=== PATIENT | female | born 1945 ===

== ENCOUNTER 2020-11-09 16:58 | Inpatient (IN) | payer MEDICARE ==
[~2020-11-09] VITALS: Ht 160 cm; Wt 115.2 kg
[2020-11-09] MEDS ORDERED: ANTACID SUSP 30 ML UDC (MYLANTA) PO PRN (17:30)
[2020-11-09] MEDS ORDERED: polyethylene glycoL POWDER 17 GM (MIRALAX) PACK PO PRN (17:30)
[2020-11-09] MEDS ORDERED: ONDANSETRON 4 MG/2 ML (SDV) Z0FRAN IV PRN (17:30)
[2020-11-09] MEDS ORDERED: ENOXAPARIN 100 MG/1 ML (LOVENOX) SYR SC SCH (17:30)
[2020-11-09] MEDS ORDERED: MELATONIN 3 MG TABLET PO PRN (17:30)
[2020-11-09] MEDS ORDERED: ACETAMINOPHEN 325 MG TABLET PO PRN (17:30)
[2020-11-09] MEDS: inSUlin ASPART (NovoLOG) 1 UNIT/0.01 ML (CHARGE PER UNIT) SC SCH (20:24)
[2020-11-09] MEDS ORDERED: CATHETER FLUSH 10 ML SYR IV PRN (20:30)
[2020-11-09 20:32] LABS: ABG BASE EXCESS -2.3 MMOL/L (-2.5-2.5); ABG OXYGEN SATURATION 97 % (94-100); ABG PCO2 40 MMHG (35-45); ABG PH 7.36 (7.37-7.43); ABG PO2 102 MMHG (79-93); ABG TCO2 23.6 MMOL/L (21.0-31.0)
[2020-11-09 20:36] LABS: ALLENS TEST YES-POS; INSPIRED O2 40L; PATIENT TEMP 36.9; VENTILATOR NO
[2020-11-09 20:38] VITALS: BP 133/92
[2020-11-09] MEDS: RT-ALBUTEROL INHALER HFA (VENTOLIN HFA) 18 GM IH SCH (21:00)
[2020-11-09] MEDS ORDERED: ENOXAPARIN 300 MG/3 ML (LOVENOX) MULTI-DOSE VIAL SQ NR (21:00)
[2020-11-09 21:04] LABS: CREATININE SERUM 1.07 MG/DL (0.60-1.30); POTASSIUM 5.3 MMOL/L (3.6-5.0)
[2020-11-09] MEDS: CATHETER FLUSH 10 ML SYR IV SCH (21:07)
--- NOTE | 2020-11-09 22:04 | Tele-ICU Consult ---
History of Present Illness History of Present Illness Date Seen by Provider: Nov 09, 2020 Time Seen by Provider: 21:58 Date of Admission 75 yo F transferred from direct admt note from OSH 4d Hx of SOB, , COVID neg, flu neg CXR shows, SpO2 in PCP office, CXR from OSH pending LA 3.5, now down, troponoin neg, not coughing, not working hard to breathe, no hemoptysis, PMH Pulm Emb, HLD, HTN, Started on IV Rocephin Now on hi georgette oxygen 40 lpm/FiO2 80% plan is to monitor RR, work of breathing, continue oxygen, watch for increasing oxygen requirements Allergies and Home Medications Allergies Coded Allergies: No Allergy Information Available (Unverified , 11/09/20) Past Medical/Social/Family Hx Patient Social History Tobacco Use?: No Alcohol Use?: No Pt stated abuse/neglect: No Immunizations Up To Date Influenza Vaccine Up-to-Date: Yes; Up-to-Date First/Initial COVID19 Vaccinat: may 2020 Second COVID19 Vaccination Carlyle: june 2020 Current Status Communicates: Verbally Primary Language: Puerto Rican Preferred Spoken Language: Puerto Rican Review of Systems Constitutional: see HPI Sepsis Event Evaluation Height, Weight, BMI Height: '" Weight: lbs. oz. kg; 45.42 BMI Method: Exam Exam Patient acknowledged, consented, and participated in this virtual visit which was conducted using real time audio/video Vital Signs Date Time Temp Pulse Resp B/P (MAP) Pulse Ox O2 Delivery O2 Flow Rate FiO2 11/09/20 21:05 Vapotherm 40.00 70.00 11/09/20 21:00 99 Vapotherm 40.00 80 11/09/20 20:50 98 Vapotherm 40.00 80 11/09/20 20:38 36.9 91 95 0 11/09/20 20:28 Vapotherm 40.00 80.00 11/09/20 20:17 96 Vapotherm 40.00 100 11/09/20 20:00 Vapotherm 40.00 80 11/09/20 19:56 36.9 92 24 165/96 (119) 100 Vapotherm 40.00 100.00 11/09/20 19:55 90 Height & Weight Height: '" Weight: lbs. oz. kg; 45.42 BMI Method: General Appearance: Mild Distress Respiratory: Decreased Breath Sounds Cardiovascular: Regular Rate, Rhythm Gastrointestinal: normal bowel sounds Results Lab Laboratory Tests 11/09/20 20:25 Assessment/Plan Assessment/Plan continue abx, monitor WOB, SpO2 Time spent with patient (mins): 15 MITRA AGUILAR MD Nov 09, 2020 22:04
[2020-11-10 04:15] LABS: HEMATOCRIT 39 % (35-52); HEMOGLOBIN 11.9 g/dL (11.5-16.0); MEAN CORPUSCULAR HEMOGLOBIN 28 pg (25-34); MEAN CORPUSCULAR HGB CONC 30 g/dL (32-36); MEAN CORPUSCULAR VOLUME 93 fL (80-99); MEAN PLATELET VOLUME 9.3 fL (9.0-12.2); PLATELET COUNT 351 10^3/uL (130-400); WHITE BLOOD COUNT 13.3 10^3/uL (4.3-11.0)
[2020-11-10 04:37] LABS: CHLORIDE 103 MMOL/L (98-107); POTASSIUM 4.2 MMOL/L (3.6-5.0); SODIUM 140 MMOL/L (135-145)
[2020-11-10 04:39] LABS: CALCIUM 9.2 MG/DL (8.5-10.1); GLUCOSE 196 MG/DL (70-105)
[2020-11-10 04:41] LABS: CARBON DIOXIDE 22 MMOL/L (21-32)
[2020-11-10 04:43] LABS: CREATININE SERUM 0.89 MG/DL (0.60-1.30); GFR ESTIMATED > 60; PHOSPHORUS 3.5 MG/DL (2.3-4.7)
[2020-11-10 04:44] LABS: BUN/CREATININE RATIO 20
[2020-11-10 04:45] LABS: MAGNESIUM 1.6 MG/DL (1.6-2.4)
[2020-11-10] MEDS: inSUlin ASPART (NovoLOG) 1 UNIT/0.01 ML (CHARGE PER UNIT) SC SCH ×4 (05:14→20:08)
[2020-11-10] MEDS: MAGNESIUM 1 GM/100 ML IVPB 100 ML IV SCH (05:22)
[2020-11-10] MEDS: KCL 20 MEQ TAB (K-DUR) PO SCH (05:22)
[2020-11-10] MEDS: POTASSIUM CL 10MEQ/50ML IVPB 50 ML IV SCH (05:22)
[2020-11-10] MEDS: CATHETER FLUSH 10 ML SYR IV SCH ×3 (05:22→20:30)
[2020-11-10] MEDS: RT-ALBUTEROL INHALER HFA (VENTOLIN HFA) 18 GM IH SCH ×2 (08:04→21:22)
--- NOTE | 2020-11-10 08:53 | Diagnostic Imaging Report ---
Indication: Hypoxemia Portable chest 8:42 AM Heart size and pulmonary vascularity are normal. Lungs are clear. There are no effusions or pneumothoraces. IMPRESSION: Negative chest Dictated by: Dictated on workstation # [id number]
[2020-11-10] MEDS ORDERED: ENOXAPARIN 60 MG/0.6 ML (LOVENOX) SYR SC SCH (09:00)
[2020-11-10] MEDS ORDERED: MULT-593 PO (10:58)
[2020-11-10] MEDS ORDERED: OLAN2.5T27 PO (10:58)
[2020-11-10] MEDS ORDERED: VENL150C98 PO (10:58)
[2020-11-10] MEDS ORDERED: AMLO-250 PO (10:58)
[2020-11-10] MEDS ORDERED: INSU100I53 SQ ×2 (10:58)
[2020-11-10] MEDS ORDERED: CALC-823 PO (10:58)
[2020-11-10] MEDS ORDERED: ACET-2267 PO (10:58)
[2020-11-10] MEDS ORDERED: LOVA20TA2 PO (10:58)
[2020-11-10] MEDS ORDERED: ACET325T38 PO (10:58)
[2020-11-10] MEDS ORDERED: LISI20TA26 PO (10:58)
[2020-11-10] MEDS ORDERED: ASPI-1238 PO (10:58)
[2020-11-10] MEDS ORDERED: CHOL-34 PO (10:58)
[2020-11-10] MEDS ORDERED: LORA10TA7 PO (10:58)
[2020-11-10] MEDS ORDERED: GLIM4TAB5 PO (10:58)
[2020-11-10] MEDS ORDERED: METF-399 PO (10:58)
[2020-11-10] MEDS ORDERED: ERGO2000 PO (11:03)
--- NOTE | 2020-11-10 11:29 | History & Physical-Hospitalist ---
History of Present Illness HPI/Chief Complaint Ashanti Powell is a 75-year-old female with past medical history of hypertension, hyperlipidemia, history of DVT/PE, who presented with shortness of breath. She states that she has been very short of breath with exertion recently. She went to her doctor's office and was hypoxic. She had to have an ambulance pick her u p in the parking lot and take her to the emergency room. She denies any chest pain. She denies any fevers or chills. She denies orthopnea and PND. She has not had any leg swelling. She has not had a cough. She denies any abdominal pain, nausea, vomiting, or diarrhea. She was diagnosed with DVT and PE in 2016. She is not sure what the cause of the blood clots were that time. She says a couple years ago her doctor said she could stop taking them. She does take aspirin twice daily. She has not had any recent immobility, surgeries, or trauma. Source: patient Exam Limitations: no limitations Date Seen 11/10/20 Time Seen by a Provider: 09:20 Attending Physician Tracie Georges MD PCP No,Local Physician Referring Physician Date of Admission Nov 09, 2020 at 19:30 Home Medications & Allergies Home Medications Reviewed patient Home Medication Reconciliation performed by pharmacy medication reconciliations bindery technician and/or nursing. Patients Allergies have been reviewed. Allergies Allergies Coded Allergies No Allergy Information Available (Unverified11/09/20) Past Ruuvbfz-Htatdx-Clmyeo Hx Patient Social History Tobacco Use?: No Alcohol Use?: No Pt feels they are or have been: No Immunizations Up To Date First/Initial COVID19 Vaccinat: may 2020 Second COVID19 Vaccination Carlyle: june 2020 Current Status Communicates: Verbally Primary Language: Samoan Preferred Spoken Language: Samoan Past Medical History Pulmonary Embolism High Cholesterol, Hypertension Family Medical History No Pertinent Family Hx Review of Systems Constitutional: no symptoms reported EENTM: no symptoms reported Respiratory: dyspnea on exertion, short of breath Cardiovascular: no symptoms reported Gastrointestinal: no symptoms reported Genitourinary: no symptoms reported Musculoskeletal: no symptoms reported Skin: no symptoms reported Psychiatric/Neurological: No Symptoms Reported Physical Exam Physical Exam Vital Signs Vital Signs - First Documented 11/09/20 11/09/20 11/09/20 19:55 19:56 20:00 Temp 36.9 Pulse 90 Resp 24 B/P (MAP) 165/96 (119) Pulse Ox 100 O2 Delivery Vapotherm O2 Flow Rate 40.00 100.00 FiO2 80 Capillary Refill : Height, Weight, BMI Height: '" Weight: lbs. oz. kg; 45.42 BMI Method: General Appearance: No Apparent Distress, Obese HEENT: PERRL/EOMI, Pharynx Normal Neck: Normal Inspection, Supple Respiratory: No Respiratory Distress, Decreased Breath Sounds Cardiovascular: Regular Rate, Rhythm, No Edema, No Murmur Gastrointestinal: Normal Bowel Sounds, Non Tender, Soft Extremity: Normal Inspection, Non Tender, No Pedal Edema Neurologic/Psychiatric: Alert, Oriented x3, No Motor/Sensory Deficits, Normal Mood/Affect Skin: Normal Color, Warm/Dry Results Results/Procedures Labs Laboratory Tests 11/09/20 20:25 11/10/20 03:22 Patient resulted labs reviewed. Imaging: Reviewed Imaging Report Assessment/Plan Admission Diagnosis Acute respiratory failure with hypoxia Admission Status: Inpatient Order (span 2 midnights) Reason for Inpatient Admission: Likely pulmonary embolism Assessment and Plan Acute respiratory failure with hypoxia Presumed pulmonary embolism History of DVT/PE Transferred from [place] D-dimer elevated CT performed prior to transfer, no reports available Obtain outside records Request radiology overread images sent on disk Started on Lovenox Requiring Vapotherm Troponin normal Obtain echo HTN HLD Continue home meds T2DM Levemir Slidinig scale insulin Morbid obesity Clinically significant, no acute management needs Critical Care Critically Ill Patient Diagnosis/Problems Diagnosis/Problems (1) Acute respiratory failure Status: Acute Qualifiers: Respiratory failure complication: hypoxia Qualified Codes: J96.01 - Acute respiratory failure with hypoxia (2) Pulmonary embolism Status: Acute (3) HTN (hypertension) Status: Chronic (4) HLD (hyperlipidemia) Status: Chronic (5) T2DM (type 2 diabetes mellitus) Status: Chronic Qualifiers: Diabetes mellitus group home insulin use: with medical terminologist use (6) Morbid obesity Status: Chronic FARHAN QUIROS MD Nov 10, 2020 11:29
--- NOTE | 2020-11-10 11:52 | Tele-ICU Progress Note ---
Subjective Date Seen by a Provider: Nov 10, 2020 Time Seen by a Provider: 11:40 Subjective/Events-last exam She is a 75-year-old female with a past medical history of morbid obesity and pulmonary embolism in 2016 apparently not on any anticoagulant except for a baby aspirin apparently started having shortness of breath about 2 days ago when she went to [facility] where she was evaluated with chest x-ray and a CT angiogram of the chest which reportedly positive for pulmonary embolism. I have the images revealed which was transferred to [facility]. However I do not have a report. I felt there is a pulmonary embolism. Currently being treated with IV antibiotics as well as a full dose Lovenox. I have made a video visit and discussed with the patient as well as the bedside RN. She is hemodynamically better she is on Vapotherm able to bring down her oxygen to 20 L from 40 L. Denies any chest pain. Awaiting full report from the attending physician. She is afebrile and denies any history of fever. She is Covid negative. Currently her blood pressure is 140/84 and oxygen saturation 93. Review of Systems ros per attending physician Sepsis Event Evaluation Height, Weight, BMI Height: '" Weight: lbs. oz. kg; 45.42 BMI Method: Exam Exam Patient acknowledged, consented, and participated in this virtual visit which was conducted using real time audio/video Vital Signs Date Time Temp Pulse Resp B/P (MAP) Pulse Ox O2 Delivery O2 Flow Rate FiO2 11/10/20 11:00 92 17 140/84 (102) 95 Vapotherm 40.00 55.00 11/10/20 10:47 91 Vapotherm 20.00 60 11/10/20 10:00 100 16 146/95 (112) 92 Vapotherm 40.00 55.00 11/10/20 09:00 103 25 161/93 (115) 88 Vapotherm 40.00 55.00 11/10/20 08:19 Vapotherm 40.00 55.00 11/10/20 08:12 36.9 11/10/20 08:04 92 Vapotherm 20.00 55 11/10/20 08:00 93 12 155/104 (121) 93 Vapotherm 40.00 65.00 11/10/20 07:50 95 Vapotherm 40.00 65 11/10/20 07:00 94 11/10/20 07:00 93 15 162/100 (120) 92 Vapotherm 40.00 65.00 11/10/20 06:00 93 16 163/100 (121) 95 Vapotherm 40.00 65.00 11/10/20 05:00 93 21 179/95 (123) 92 Vapotherm 40.00 65.00 11/10/20 04:00 89 12 179/91 (120) 92 Vapotherm 40.00 65.00 11/10/20 03:04 36.6 11/10/20 03:04 Vapotherm 40.00 65 11/10/20 03:00 90 22 167/104 (125) 94 Vapotherm 40.00 65.00 11/10/20 02:00 85 17 173/98 (123) 93 Vapotherm 40.00 65.00 11/10/20 01:47 Vapotherm 40.00 65.00 11/10/20 01:00 88 11/10/20 01:00 88 17 157/99 (118) 97 Vapotherm 40.00 70.00 11/10/20 00:00 85 18 159/80 (106) 94 Vapotherm 40.00 70.00 11/09/20 23:02 Vapotherm 40.00 70 11/09/20 23:00 90 19 152/97 (115) 92 Vapotherm 40.00 70.00 11/09/20 22:58 36.8 11/09/20 22:00 90 17 132/95 (107) 93 Vapotherm 40.00 70.00 11/09/20 21:05 Vapotherm 40.00 70.00 11/09/20 21:00 99 Vapotherm 40.00 80 11/09/20 21:00 92 18 130/93 (105) 95 Vapotherm 40.00 80.00 11/09/20 20:50 98 Vapotherm 40.00 80 11/09/20 20:38 36.9 91 95 0 11/09/20 20:28 Vapotherm 40.00 80.00 11/09/20 20:17 96 Vapotherm 40.00 100 11/09/20 20:15 95 12 133/92 (106) 98 Vapotherm 40.00 100.00 11/09/20 20:00 90 24 138/92 (107) 100 Vapotherm 40.00 100.00 11/09/20 20:00 Vapotherm 40.00 80 11/09/20 19:56 36.9 92 24 165/96 (119) 100 Vapotherm 40.00 100.00 11/09/20 19:55 90 I & O 11/10/20 07:00 Intake Total 650 ml Output Total 700 ml Balance -50 ml Height & Weight Height: '" Weight: lbs. oz. kg; 45.42 BMI Method: General Appearance: Mild Distress Respiratory: Decreased Breath Sounds Cardiovascular: Regular Rate, Rhythm Gastrointestinal: normal bowel sounds Other comments visual assessment via video visit. PE per rn and attending physician Results Lab Laboratory Tests 11/09/20 20:25 11/10/20 03:22 Meds reviewed Radiology cxr reviewed by me and negative. CT angiogram done at out side facility official result pending but it appears to me positive for PE Assessment/Plan Assessment/Plan 1. Acute hypoxic respiratory failure secondary to underlying pulmonary embolism 2. Additional bacterial pneumonia is a possibility 3. History of pulmonary embolism on no anticoagulant therapy 4. Morbid obesity. Recommendations 1. Agree with full dose anticoagulant therapy with the Lovenox for 2 days followed by Palmer Robledo per PE protocol 10. Continue oxygen via Vapotherm and wean FiO2 as tolerated 3. Continue empiric antibiotic therapy for now 4. Suggest venous Dopplers of the lower limbs if it is not done 5. Await for CT angiogram of the chest report done at outside facility which is not available to me at this time. 6. Continue monitor BUN and creatinine. Time spent with patient (mins): 35 JIMBO LABOY MD Nov 10, 2020 11:52
[2020-11-10] MEDS ORDERED: cefTRIAXone 1,000 MG in WATER (STERILE) FOR INJECTION 10 ML IV SCH (12:00)
--- NOTE | 2020-11-10 18:51 | Diagnostic Imaging Report ---
PROCEDURE: US venous lower ext anthony. TECHNIQUE: Multiple real-time grayscale images were obtained over the lower extremities in various projections, bilaterally. Additional duplex Doppler and color Doppler images were also obtained. INDICATION: Pulmonary embolism, elevated d-dimer. COMPARISON: None available. FINDINGS: Examination is significantly limited secondary to patient body habitus. Therefore, there is resulting limited compression diffusely. 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 One of the posterior tibial veins demonstrates internal echoes and decreased flow. Otherwise, there is normal flow and augmentation throughout the visualized deep venous structures of the bilateral lower extremities within the limits of the exam. 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 Dictated by: Dictated on workstation # [id number]
[2020-11-10] MEDS: OLANZapine 2.5 MG (ZyPREXA) TAB PO SCH (20:08)
[2020-11-10] MEDS: SIMvastatin 20 MG (ZOCOR) TAB PO SCH (20:08)
[2020-11-10] MEDS: ENOXAPARIN 300 MG/3 ML (LOVENOX) MULTI-DOSE VIAL SQ SCH (20:14)
[2020-11-11 02:42] LABS: HEMATOCRIT 41 % (35-52); HEMOGLOBIN 12.7 g/dL (11.5-16.0); MEAN CORPUSCULAR HEMOGLOBIN 29 pg (25-34); MEAN CORPUSCULAR HGB CONC 31 g/dL (32-36); MEAN CORPUSCULAR VOLUME 93 fL (80-99); MEAN PLATELET VOLUME 9.2 fL (9.0-12.2); PLATELET COUNT 378 10^3/uL (130-400); WHITE BLOOD COUNT 12.3 10^3/uL (4.3-11.0)
[2020-11-11 02:58] LABS: CHLORIDE 104 MMOL/L (98-107); POTASSIUM 4.3 MMOL/L (3.6-5.0); SODIUM 141 MMOL/L (135-145)
[2020-11-11 02:59] LABS: CALCIUM 9.3 MG/DL (8.5-10.1)
[2020-11-11 03:00] LABS: GLUCOSE 185 MG/DL (70-105)
[2020-11-11 03:01] LABS: CARBON DIOXIDE 23 MMOL/L (21-32)
[2020-11-11 03:03] LABS: PHOSPHORUS 3.4 MG/DL (2.3-4.7)
[2020-11-11 03:04] LABS: CREATININE SERUM 0.86 MG/DL (0.60-1.30); GFR ESTIMATED > 60
[2020-11-11 03:05] LABS: BUN/CREATININE RATIO 9
[2020-11-11 03:06] LABS: MAGNESIUM 1.7 MG/DL (1.6-2.4)
[2020-11-11] MEDS: MAGNESIUM 1 GM/100 ML IVPB 100 ML IV SCH (03:07)
[2020-11-11] MEDS: CATHETER FLUSH 10 ML SYR IV SCH ×3 (03:07→20:53)
[2020-11-11] MEDS: KCL 20 MEQ TAB (K-DUR) PO SCH (03:07)
[2020-11-11] MEDS: POTASSIUM CL 10MEQ/50ML IVPB 50 ML IV SCH (03:07)
[2020-11-11] MEDS: VENlafaxine XR 75 MG (EFFEXOR XR) CAP PO SCH (05:40)
[2020-11-11] MEDS: inSUlin ASPART (NovoLOG) 1 UNIT/0.01 ML (CHARGE PER UNIT) SC SCH ×6 (05:45→20:52)
[2020-11-11] MEDS: RT-ALBUTEROL INHALER HFA (VENTOLIN HFA) 18 GM IH SCH ×2 (07:24→19:14)
[2020-11-11] MEDS: lisINopril 10 MG (PRINIVIL) TABLET PO SCH (08:05)
[2020-11-11] MEDS: OLANZapine 2.5 MG (ZyPREXA) TAB PO SCH ×2 (08:05→20:53)
[2020-11-11] MEDS: amLODIPine 5 MG (NORVASC) TAB PO SCH (08:05)
[2020-11-11] MEDS: ENOXAPARIN 300 MG/3 ML (LOVENOX) MULTI-DOSE VIAL SQ SCH (08:06)
[2020-11-11] MEDS ORDERED: NON-FORMULARY MEDICATION 1 EA EA (Venlafaxine HCl (Venlafaxine HCl ER) 300 MG) PO SCH (09:00)
--- NOTE | 2020-11-11 09:18 | Tele-ICU Progress Note ---
Subjective Date Seen by a Provider: Nov 11, 2020 Time Seen by a Provider: 09:17 Review of Systems ros per attending physician Sepsis Event Evaluation Height, Weight, BMI Height: '" Weight: lbs. oz. kg; 45.42 BMI Method: Exam Exam Patient acknowledged, consented, and participated in this virtual visit which was conducted using real time audio/video Vital Signs Date Time Temp Pulse Resp B/P (MAP) Pulse Ox O2 Delivery O2 Flow Rate FiO2 11/11/20 08:30 36.1 11/11/20 08:00 89 17 145/98 (114) 92 Vapotherm 20.00 40.00 11/11/20 07:24 93 Vapotherm 15.00 40 11/11/20 07:00 91 22 162/94 (116) 90 Vapotherm 20.00 40.00 11/11/20 07:00 90 11/11/20 06:00 93 21 161/95 (117) 92 Vapotherm 20.00 40.00 11/11/20 05:00 93 24 154/88 (110) 92 Vapotherm 20.00 40.00 11/11/20 04:00 97 24 162/93 (116) 91 Vapotherm 20.00 40.00 11/11/20 03:29 169/85 (113) 11/11/20 03:10 Vapotherm 20.00 40.00 11/11/20 03:04 36.3 11/11/20 03:03 95 Vapotherm 20.00 45 11/11/20 03:00 98 13 137/105 (116) 95 Vapotherm 20.00 45.00 11/11/20 02:41 96 Vapotherm 20.00 40 11/11/20 02:00 100 22 150/81 (104) 93 Vapotherm 20.00 45.00 11/11/20 01:00 97 29 169/91 (117) 92 Vapotherm 20.00 45.00 11/11/20 01:00 97 11/11/20 00:00 96 19 156/97 (116) 94 Vapotherm 20.00 45.00 11/10/20 23:03 95 Vapotherm 20.00 45 11/10/20 23:00 90 18 153/85 (107) 94 Vapotherm 20.00 45.00 11/10/20 22:51 36.2 11/10/20 22:00 94 23 143/94 (110) 92 Vapotherm 20.00 45.00 11/10/20 21:22 97 Vapotherm 20.00 45 11/10/20 21:00 96 15 152/115 (127) 95 Vapotherm 20.00 45.00 11/10/20 20:00 92 15 132/72 (92) 93 Vapotherm 20.00 45.00 11/10/20 19:54 95 Vapotherm 20.00 45 11/10/20 19:32 36.0 11/10/20 19:00 91 13 138/79 (98) 93 Vapotherm 20.00 45.00 11/10/20 19:00 Vapotherm 20.00 45.00 11/10/20 19:00 90 11/10/20 18:36 94 Vapotherm 20.00 45.00 11/10/20 18:25 Vapotherm 40.00 50.00 11/10/20 18:21 97 Vapotherm 20.00 55 11/10/20 18:00 85 19 127/83 (98) 95 Vapotherm 40.00 55.00 11/10/20 17:00 86 11 147/89 (108) 93 Vapotherm 40.00 55.00 11/10/20 16:06 92 Vapotherm 20.00 55 11/10/20 16:00 85 27 148/86 (106) 91 Vapotherm 40.00 55.00 11/10/20 16:00 95 Vapotherm 20.00 55 11/10/20 15:51 36.2 11/10/20 15:00 87 21 141/83 (102) 94 Vapotherm 40.00 55.00 11/10/20 14:00 97 10 131/79 (96) 97 Vapotherm 40.00 55.00 11/10/20 13:00 93 15 136/85 (102) 93 Vapotherm 40.00 55.00 11/10/20 13:00 88 11/10/20 12:00 88 16 140/81 (100) 93 Vapotherm 40.00 55.00 11/10/20 12:00 95 Vapotherm 20.00 55 11/10/20 11:45 36.1 11/10/20 11:00 92 17 140/84 (102) 95 Vapotherm 40.00 55.00 11/10/20 10:47 91 Vapotherm 20.00 60 11/10/20 10:00 100 16 146/95 (112) 92 Vapotherm 40.00 55.00 I & O 11/11/20 07:00 Intake Total 3900 ml Output Total 3725 ml Balance 175 ml Height & Weight Height: '" Weight: lbs. oz. kg; 45.42 BMI Method: General Appearance: Mild Distress HEENT: PERRL/EOMI, Pharynx Normal Neck: Normal Inspection, Supple Respiratory: Decreased Breath Sounds Cardiovascular: Regular Rate, Rhythm Gastrointestinal: normal bowel sounds Extremity: Normal Inspection, Non Tender, No Pedal Edema Neurologic/Psychiatric: Alert, Oriented x3, No Motor/Sensory Deficits, Normal Mood/Affect Skin: Normal Color, Warm/Dry Results Lab Laboratory Tests 11/09/20 20:25 11/10/20 03:22 11/11/20 02:17 Assessment/Plan Assessment/Plan 1. Bilateral extensive Covid19 pneumonia with ARDS. 2. Acute hypoxic respiratory failure on mechanical ventilation and unable to wean from vent. 3. Intermittent hypotension probably due to volume depletion and also due to Precedex. 4. Morbid obesity 5. Hyperglycemia probably due to acute infection and received dexamethasone earlier. Recommendations 1. We will decrease the Precedex to 0.5 mcg/kg/h and see whether her blood pressure improves 2. Continue fentanyl drip 3. We will continue to wean FiO2 as tolerated however she is not ready for extubation. 4. Continue Levemir insulin and sliding scale coverage with a goal of keeping her blood sugars less than 200 5. Continue DVT prophylaxis with Lovenox 40 mg subcu twice daily 6. IV Protonix 40 mg IV twice daily for ulcer prophylaxis. 7. We will repeat Covid19 PCR as she did not have any testing done during this hospitalization. At the same time do influenza a and B testing. 8. Her overall prognosis is guarded. Critical Care: Critically Ill Patient JIMBO LABOY MD Nov 11, 2020 09:18
--- NOTE | 2020-11-11 09:49 | Tele-ICU Progress Note ---
Subjective Date Seen by a Provider: Nov 11, 2020 Time Seen by a Provider: 09:48 Subjective/Events-last exam Today she states that she is breathing for however she continues to require 15 L also Vapotherm with 40% FiO2. Her venous Dopplers came out positive for left leg DVT. She denies any chest pain or wheeze wheezing. Review of Systems ros per attending physician Sepsis Event Evaluation Height, Weight, BMI Height: '" Weight: lbs. oz. kg; 45.42 BMI Method: Exam Exam Patient acknowledged, consented, and participated in this virtual visit which was conducted using real time audio/video Vital Signs Date Time Temp Pulse Resp B/P (MAP) Pulse Ox O2 Delivery O2 Flow Rate FiO2 11/11/20 09:00 89 24 133/70 (91) 93 Vapotherm 20.00 40.00 11/11/20 08:30 36.1 11/11/20 08:00 89 17 145/98 (114) 92 Vapotherm 20.00 40.00 11/11/20 07:24 93 Vapotherm 15.00 40 11/11/20 07:00 91 22 162/94 (116) 90 Vapotherm 20.00 40.00 11/11/20 07:00 90 11/11/20 06:00 93 21 161/95 (117) 92 Vapotherm 20.00 40.00 11/11/20 05:00 93 24 154/88 (110) 92 Vapotherm 20.00 40.00 11/11/20 04:00 97 24 162/93 (116) 91 Vapotherm 20.00 40.00 11/11/20 03:29 169/85 (113) 11/11/20 03:10 Vapotherm 20.00 40.00 11/11/20 03:04 36.3 11/11/20 03:03 95 Vapotherm 20.00 45 11/11/20 03:00 98 13 137/105 (116) 95 Vapotherm 20.00 45.00 11/11/20 02:41 96 Vapotherm 20.00 40 11/11/20 02:00 100 22 150/81 (104) 93 Vapotherm 20.00 45.00 11/11/20 01:00 97 29 169/91 (117) 92 Vapotherm 20.00 45.00 11/11/20 01:00 97 11/11/20 00:00 96 19 156/97 (116) 94 Vapotherm 20.00 45.00 11/10/20 23:03 95 Vapotherm 20.00 45 11/10/20 23:00 90 18 153/85 (107) 94 Vapotherm 20.00 45.00 11/10/20 22:51 36.2 11/10/20 22:00 94 23 143/94 (110) 92 Vapotherm 20.00 45.00 11/10/20 21:22 97 Vapotherm 20.00 45 11/10/20 21:00 96 15 152/115 (127) 95 Vapotherm 20.00 45.00 11/10/20 20:00 92 15 132/72 (92) 93 Vapotherm 20.00 45.00 11/10/20 19:54 95 Vapotherm 20.00 45 11/10/20 19:32 36.0 11/10/20 19:00 91 13 138/79 (98) 93 Vapotherm 20.00 45.00 11/10/20 19:00 Vapotherm 20.00 45.00 11/10/20 19:00 90 11/10/20 18:36 94 Vapotherm 20.00 45.00 11/10/20 18:25 Vapotherm 40.00 50.00 11/10/20 18:21 97 Vapotherm 20.00 55 11/10/20 18:00 85 19 127/83 (98) 95 Vapotherm 40.00 55.00 11/10/20 17:00 86 11 147/89 (108) 93 Vapotherm 40.00 55.00 11/10/20 16:06 92 Vapotherm 20.00 55 11/10/20 16:00 85 27 148/86 (106) 91 Vapotherm 40.00 55.00 11/10/20 16:00 95 Vapotherm 20.00 55 11/10/20 15:51 36.2 11/10/20 15:00 87 21 141/83 (102) 94 Vapotherm 40.00 55.00 11/10/20 14:00 97 10 131/79 (96) 97 Vapotherm 40.00 55.00 11/10/20 13:00 93 15 136/85 (102) 93 Vapotherm 40.00 55.00 11/10/20 13:00 88 11/10/20 12:00 88 16 140/81 (100) 93 Vapotherm 40.00 55.00 11/10/20 12:00 95 Vapotherm 20.00 55 11/10/20 11:45 36.1 11/10/20 11:00 92 17 140/84 (102) 95 Vapotherm 40.00 55.00 11/10/20 10:47 91 Vapotherm 20.00 60 11/10/20 10:00 100 16 146/95 (112) 92 Vapotherm 40.00 55.00 I & O 11/11/20 07:00 Intake Total 3900 ml Output Total 3725 ml Balance 175 ml Height & Weight Height: '" Weight: lbs. oz. kg; 45.42 BMI Method: General Appearance: Mild Distress HEENT: PERRL/EOMI, Pharynx Normal Neck: Normal Inspection, Supple Respiratory: Decreased Breath Sounds Cardiovascular: Regular Rate, Rhythm Gastrointestinal: normal bowel sounds Extremity: Normal Inspection, Non Tender, No Pedal Edema Neurologic/Psychiatric: Alert, Oriented x3, No Motor/Sensory Deficits, Normal Mood/Affect Skin: Normal Color, Warm/Dry Other comments PE per attending physician Results Lab Laboratory Tests 11/09/20 20:25 11/10/20 03:22 11/11/20 02:17 Meds reviewed Radiology NAME: ALBERTA YANES [facility] REC#: [id number] PT STATUS: ADM IN : 1945 PHYSICIAN: FARHAN QUIROS MD ADMIT DATE: 11/09/20/ICU Signed Date of Exam:11/10/20 US VENOUS LOWER EXT HEATHER PROCEDURE: US venous lower ext heather. TECHNIQUE: Multiple real-time grayscale images were obtained over the lower extremities in various projections, bilaterally. Additional duplex Doppler and color Doppler images were also obtained. INDICATION: Pulmonary embolism, elevated d-dimer. COMPARISON: None available. FINDINGS: Examination is significantly limited secondary to patient body habitus. Therefore, there is resulting limited compression diffusely. 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 One of the posterior tibial veins demonstrates internal echoes and decreased flow. Otherwise, there is normal flow and augmentation throughout the visualized deep venous structures of the bilateral lower extremities within the limits of the exam. 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 Dictated by: Dictated on workstation # [id number] Dict: 11/10/201831 Trans: 11/10/201915 [facility] [id number] Interpreted by: SHEILA BELLE MD Electronically signed by: SHEILA BELLE MD 11/10/201915 Assessment/Plan Assessment/Plan 1. Acute hypoxic respiratory failure secondary to underlying pulmonary embolism 2. Additional bacterial pneumonia is a possibility 3. History of pulmonary embolism on no anticoagulant therapy 4. Morbid obesity. 5. Acute DVT left leg Recommendations 1. Agree with full dose anticoagulant therapy with the Lovenox for 2 days and the star on eliquis per PE protocol 10. Continue oxygen via Vapotherm and wean FiO2 as tolerated 3. Continue empiric antibiotic therapy for now 4. D/W patient via video visit and with auricular therapistindustrial insulator: Critically Ill Patient Diagnosis/Problems Diagnosis/Problems (1) DVT (deep venous thrombosis) Qualifiers: JIMBO LABOY MD Nov 11, 2020 09:49
[2020-11-11] MEDS ORDERED: RIVAROXABAN 15 MG TABLET (XARELTO) PO ONE (13:30)
--- NOTE | 2020-11-11 13:30 | Progress Note - Hospitalist ---
Subjective HPI/CC On Admission Date Seen by Provider: Nov 11, 2020 Time Seen by Provider: 09:00 Ashanti Powell is a 75-year-old female with past medical history of hypertension, hyperlipidemia, history of DVT/PE, who presented with shortness of breath. She states that she has been very short of breath with exertion recently. She went to her doctor's office and was hypoxic. She had to have an ambulance pick her up in the parking lot and take her to the emergency room. She denies any chest pain. She denies any fevers or chills. She denies orthopnea and PND. She has not had any leg swelling. She has not had a cough. She denies any abdominal pain, nausea, vomiting, or diarrhea. She was diagnosed with DVT and PE in 2016. She is not sure what the cause of the blood clots were that time. She says a couple years ago her doctor said she could stop taking them. She does take aspirin twice daily. She has not had any recent immobility, surgeries, or trauma. Subjective/Events-last exam Her shortness of breath is improved. She is not having any chest pain. She has no other complaints or concerns. She would like to have a regular diet. Objective Exam Vital Signs Vital Signs Date Time Temp Pulse Resp B/P (MAP) Pulse Ox O2 Delivery O2 Flow Rate FiO2 11/11/20 13:00 90 11/11/20 12:31 91 High Flow N/C 6.00 11/11/20 12:00 18 133/84 (100) 11/11/20 11:40 36.0 11/11/20 08:00 40 Capillary Refill : General Appearance: No Apparent Distress, Obese Respiratory: Lungs Clear, Normal Breath Sounds, No Respiratory Distress Cardiovascular: Regular Rate, Rhythm, No Murmur Gastrointestinal: Normal Bowel Sounds, Non Tender, Soft Extremity: Normal Inspection, Non Tender, Pedal Edema Neurologic/Psychiatric: Alert, Oriented x3, No Motor/Sensory Deficits, Normal Mood/Affect Skin: Normal Color, Warm/Dry Results/Procedures Lab Laboratory Tests 11/11/20 02:17 Patient resulted labs reviewed. Imaging: Reviewed Imaging Report Assessment/Plan Assessment and Plan Assess & Plan/Chief Complaint Acute respiratory failure with hypoxia Pulmonary embolism DVT History of DVT/PE Transferred from [place] D-dimer elevated CT performed prior to transfer, report says no pulmonary embolism Appears to be right sided pulmonary embolism Obtain over-read of imaging Troponin normal Echo with diastolic dysfunction, mildly enlarged right ventricle, normal-mild ly elevated pulmonary pressures Venous dopplers consistent with left posterior tibial DVT Transition to Xarelto Transition to nasal cannula Transfer to medical floor HTN HLD Continue home meds T2DM Levemir Slidinig scale insulin Morbid obesity Clinically significant, no acute management needs Diagnosis/Problems Diagnosis/Problems (1) Acute respiratory failure Status: Acute Qualifiers: Respiratory failure complication: hypoxia Qualified Codes: J96.01 - Acute respiratory failure with hypoxia (2) Pulmonary embolism Status: Acute (3) DVT (deep venous thrombosis) Qualifiers: DVT location: lower extremity Affected thrombotic vein of extremity: tibial Laterality: left (4) HTN (hypertension) Status: Chronic (5) HLD (hyperlipidemia) Status: Chronic (6) T2DM (type 2 diabetes mellitus) Status: Chronic Qualifiers: Diabetes mellitus skilled nursing insulin use: with terminal block assembler use (7) Morbid obesity Status: Chronic (8) History of venous thromboembolism Status: Chronic FARHAN QUIROS MD Nov 11, 2020 13:30
[2020-11-11 15:50] VITALS: BP 121/74
[2020-11-11] MEDS: RIVAROXABAN 15 MG TABLET (XARELTO) PO SCH (18:19)
[2020-11-11] MEDS: RT-ALBUTEROL INHALER HFA (VENTOLIN HFA) 18 GM IH PRN (19:14)
[2020-11-11 20:05] VITALS: BP 149/83
[2020-11-11] MEDS: SIMvastatin 20 MG (ZOCOR) TAB PO SCH (20:53)
[2020-11-11 23:39] VITALS: BP 121/71
[2020-11-12 04:29] VITALS: BP 158/89
[2020-11-12 05:28] LABS: HEMATOCRIT 38 % (35-52); HEMOGLOBIN 11.6 g/dL (11.5-16.0); MEAN CORPUSCULAR HEMOGLOBIN 28 pg (25-34); MEAN CORPUSCULAR HGB CONC 30 g/dL (32-36); MEAN CORPUSCULAR VOLUME 93 fL (80-99); MEAN PLATELET VOLUME 9.2 fL (9.0-12.2); PLATELET COUNT 342 10^3/uL (130-400); WHITE BLOOD COUNT 10.8 10^3/uL (4.3-11.0)
[2020-11-12 05:46] LABS: POTASSIUM 5.2 MMOL/L (3.6-5.0)
[2020-11-12 05:48] LABS: CALCIUM 8.9 MG/DL (8.5-10.1)
[2020-11-12 05:52] LABS: CREATININE SERUM 1.04 MG/DL (0.60-1.30); PHOSPHORUS 4.3 MG/DL (2.3-4.7)
[2020-11-12 05:55] LABS: MAGNESIUM 1.8 MG/DL (1.6-2.4)
[2020-11-12] MEDS: CATHETER FLUSH 10 ML SYR IV SCH ×3 (05:57→21:12)
[2020-11-12] MEDS: inSUlin ASPART (NovoLOG) 1 UNIT/0.01 ML (CHARGE PER UNIT) SC SCH ×7 (06:09→21:11)
[2020-11-12] MEDS: RIVAROXABAN 15 MG TABLET (XARELTO) PO SCH ×2 (06:09→18:14)
[2020-11-12] MEDS: VENlafaxine XR 75 MG (EFFEXOR XR) CAP PO SCH (06:10)
--- NOTE | 2020-11-12 06:48 | Progress Note - Hospitalist ---
Subjective HPI/CC On Admission Date Seen by Provider: Nov 12, 2020 Time Seen by Provider: 11:00 Ashanti Powell is a 75-year-old female with past medical history of hypertension, hyperlipidemia, history of DVT/PE, who presented with shortness of breath. She states that she has been very short of breath with exertion recently. She went to her doctor's office and was hypoxic. She had to have an ambulance pick her up in the parking lot and take her to the emergency room. She denies any chest pain. She denies any fevers or chills. She denies orthopnea and PND. She has not had any leg swelling. She has not had a cough. She denies any abdominal pain, nausea, vomiting, or diarrhea. She was diagnosed with DVT and PE in 2016. She is not sure what the cause of the blood clots were that time. She says a couple years ago her doctor said she could stop taking them. She does take aspirin twice daily. She has not had any recent immobility, surgeries, or trauma. Subjective/Events-last exam Patient doing very well Discontinue telemetry Decubitus ulcer is being monitored closely Flaking skin is chronic Discontinuing the Jain catheter Bowels not moving but passing gas Reviewed meds and labs and imaging Review of Systems General: Fatigue, Malaise Pulmonary: Dyspnea Objective Exam Vital Signs Vital Signs Date Time Temp Pulse Resp B/P (MAP) Pulse Ox O2 Delivery O2 Flow Rate FiO2 11/13/20 04:23 36.2 81 22 127/73 (91) 95 Nasal Cannula 5.00 11/11/20 08:00 40 Capillary Refill : General Appearance: No Apparent Distress, WD/WN, Chronically ill, Obese Respiratory: Lungs Clear, Decreased Breath Sounds Cardiovascular: Regular Rate, Rhythm Neurologic/Psychiatric: Alert, Oriented x3 Results/Procedures Lab Laboratory Tests 11/13/20 04:15 Patient resulted labs reviewed. Imaging: Reviewed Imaging Report Assessment/Plan Assessment and Plan Assess & Plan/Chief Complaint Assessment: Acute respiratory failure with hypoxia Pulmonary embolism Left lower extremity DVT History of DVT in the past Obesity Hypertension Hyperlipidemia Diabetes mop-wa-chndeml Plan: Xarelto Increase insulin Monitor closely VIDYA MAHAJAN DO Nov 12, 2020 06:48
[2020-11-12 06:57] LABS: ALBUMIN 3.6 GM/DL (3.2-4.5); POTASSIUM 5.2 MMOL/L (3.6-5.0)
[2020-11-12 06:59] LABS: CALCIUM 8.9 MG/DL (8.5-10.1)
[2020-11-12 07:00] LABS: TOTAL PROTEIN 6.2 GM/DL (6.4-8.2)
[2020-11-12 07:02] LABS: BILIRUBIN,TOTAL 0.6 MG/DL (0.1-1.0)
[2020-11-12 07:03] LABS: CREATININE SERUM 1.05 MG/DL (0.60-1.30)
[2020-11-12 07:52] VITALS: BP 114/63
[2020-11-12] MEDS: lisINopril 10 MG (PRINIVIL) TABLET PO SCH (08:34)
[2020-11-12] MEDS: OLANZapine 2.5 MG (ZyPREXA) TAB PO SCH ×2 (08:34→20:05)
[2020-11-12] MEDS: amLODIPine 5 MG (NORVASC) TAB PO SCH (08:34)
[2020-11-12] MEDS: RT-ALBUTEROL INHALER HFA (VENTOLIN HFA) 18 GM IH SCH ×2 (09:48→21:31)
[2020-11-12 11:15] VITALS: BP 129/75
[2020-11-12 16:07] VITALS: BP 136/80
[2020-11-12] MEDS ORDERED: inSUlin (REGULAR) HUMAN 1 UNIT/0.01 ML (CHARGE PER UNIT) SC PRN (17:15)
[2020-11-12 19:25] VITALS: BP 131/78
[2020-11-12] MEDS: SIMvastatin 20 MG (ZOCOR) TAB PO SCH (20:05)
[2020-11-12] MEDS: RT-ALBUTEROL INHALER HFA (VENTOLIN HFA) 18 GM IH PRN (21:31)
[2020-11-12 23:56] VITALS: BP 126/68
[2020-11-13 04:23] VITALS: BP 127/73
[2020-11-13 04:36] LABS: BASOPHILS % (AUTO) 0 % (0-10); EOSINOPHILS # (AUTO) 0.4 10^3/uL (0.0-0.3); EOSINOPHILS % (AUTO) 4 % (0-10); HEMATOCRIT 37 % (35-52); HEMOGLOBIN 11.2 g/dL (11.5-16.0); LYMPHOCYTES # (AUTO) 1.7 10^3/uL (1.0-4.0); LYMPHOCYTES % (AUTO) 19 % (12-44); MEAN CORPUSCULAR HEMOGLOBIN 28 pg (25-34); MEAN CORPUSCULAR HGB CONC 31 g/dL (32-36); MEAN CORPUSCULAR VOLUME 92 fL (80-99); MEAN PLATELET VOLUME 9.1 fL (9.0-12.2); MONOCYTES # (AUTO) 0.6 10^3/uL (0.0-1.0); MONOCYTES % (AUTO) 7 % (0-12); NEUTROPHILS # (AUTO) 6.1 10^3/uL (1.8-7.8); NEUTROPHILS % (AUTO) 69 % (42-75); PLATELET COUNT 323 10^3/uL (130-400); WHITE BLOOD COUNT 8.8 10^3/uL (4.3-11.0)
[2020-11-13 04:57] LABS: ALBUMIN 3.6 GM/DL (3.2-4.5); POTASSIUM 5.1 MMOL/L (3.6-5.0)
[2020-11-13 04:58] LABS: CALCIUM 8.9 MG/DL (8.5-10.1)
[2020-11-13 04:59] LABS: TOTAL PROTEIN 6.1 GM/DL (6.4-8.2)
[2020-11-13 05:01] LABS: BILIRUBIN,TOTAL 0.4 MG/DL (0.1-1.0)
[2020-11-13 05:03] LABS: CREATININE SERUM 0.97 MG/DL (0.60-1.30)
[2020-11-13] MEDS: inSUlin ASPART (NovoLOG) 1 UNIT/0.01 ML (CHARGE PER UNIT) SC SCH ×7 (05:31→20:16)
--- NOTE | 2020-11-13 05:55 | Progress Note - Hospitalist ---
Subjective HPI/CC On Admission Date Seen by Provider: Nov 13, 2020 Time Seen by Provider: 10:00 Ashanti Powell is a 75-year-old female with past medical history of hypertension, hyperlipidemia, history of DVT/PE, who presented with shortness of breath. She states that she has been very short of breath with exertion recently. She went to her doctor's office and was hypoxic. She had to have an ambulance pick her up in the parking lot and take her to the emergency room. She denies any chest pain. She denies any fevers or chills. She denies orthopnea and PND. She has not had any leg swelling. She has not had a cough. She denies any abdominal pain, nausea, vomiting, or diarrhea. She was diagnosed with DVT and PE in 2016. She is not sure what the cause of the blood clots were that time. She says a couple years ago her doctor said she could stop taking them. She does take aspirin twice daily. She has not had any recent immobility, surgeries, or trauma. Subjective/Events-last exam Pt doing pretty well No BM since she has been admitted so will initiate a Dulcolex suppository No major issues Four liters of oxygen currently PT and OT ordered Overall doing very well Review of Systems General: Fatigue, Malaise Pulmonary: Dyspnea Objective Exam Vital Signs Vital Signs Date Time Temp Pulse Resp B/P (MAP) Pulse Ox O2 Delivery O2 Flow Rate FiO2 11/14/20 04:34 36.6 80 20 144/83 (103) 97 Nasal Cannula 4.00 11/13/20 06:49 40 Capillary Refill : General Appearance: No Apparent Distress, WD/WN, Chronically ill Respiratory: Lungs Clear, Decreased Breath Sounds Cardiovascular: Regular Rate, Rhythm Neurologic/Psychiatric: Alert, Oriented x3 Results/Procedures Lab Patient resulted labs reviewed. Imaging: Reviewed Imaging Report Assessment/Plan Assessment and Plan Assess & Plan/Chief Complaint Assessment: Acute respiratory failure with hypoxia Pulmonary embolism Left lower extremity DVT History of DVT in the past Obesity Hypertension Hyperlipidemia Diabetes cpe-ij-lfglecz Plan: Xarelto Increase insulin Monitor closely 11/13/2020: PT and OT O2 eval Discharge planning VIDYA MAHAJAN DO Nov 13, 2020 05:55
[2020-11-13] MEDS: VENlafaxine XR 75 MG (EFFEXOR XR) CAP PO SCH (06:17)
[2020-11-13] MEDS: RIVAROXABAN 15 MG TABLET (XARELTO) PO SCH ×2 (06:17→18:46)
[2020-11-13] MEDS: CATHETER FLUSH 10 ML SYR IV SCH ×3 (06:17→20:17)
[2020-11-13] MEDS: RT-ALBUTEROL INHALER HFA (VENTOLIN HFA) 18 GM IH SCH (06:48)
[2020-11-13 08:16] VITALS: BP 138/74
[2020-11-13] MEDS: lisINopril 10 MG (PRINIVIL) TABLET PO SCH (08:27)
[2020-11-13] MEDS: OLANZapine 2.5 MG (ZyPREXA) TAB PO SCH ×2 (08:27→20:12)
[2020-11-13] MEDS: amLODIPine 5 MG (NORVASC) TAB PO SCH (08:27)
[2020-11-13 11:37] VITALS: BP 133/76
--- NOTE | 2020-11-13 12:00 | Progress Note ---
JOAQUIN PHILLIPS MED STUDENT 11/13/20 1200: Progress Note CC: Doing well, denies N/V, pain, LE pain/swelling. Notes that she has not had a BM since being admitted to the hospital PE: general: alert, no distress respiratory: CTAB, no respiratory distress CV: RRR, no murmur abdomen: soft, nontender extremity: nontender, no edema neuro/psych: alert, oriented normal affect Assessment/Plan: PE/DVT Xarelto PT/OT acute respiratory failure-improving 93% on 4 liters constipation Dulcolax suppository uncontrolled DM HTN HLD obesity hx PE/DVT FLORA MAHAJAN DO 11/13/202119: Supervisory-Addendum Brief Verification & Attestation Participated in pt care: history, MDM, physical Personally performed: exam, history, MDM, supervision of care Care discussed with: Medical Student Procedures: n/a Results interpretation: Verified all documentation Verification and Attestation of Medical Student E/M Service A medical student performed and documented this service in my presence. I reviewed and verified all information documented by the medical student and made modifications to such information, when appropriate. I personally performed the physical exam and medical decision making. Flora Mahajan, Nov 13, 2020,21:19 JOAQUIN PHILLIPS MED STUDENT Nov 13, 2020 12:00 FLORA MAHAJAN DO Nov 13, 2020 21:20
--- NOTE | 2020-11-13 13:37 | Physical Therapy Evaluation ---
PT Evaluation-General Medical Diagnosis Admission Date Nov 09, 2020 at 19:30 Medical Diagnosis: Acute Respiratory Failure; pulmonary embolism Onset Date: Nov 13, 2020 Therapy Diagnosis Therapy Diagnosis: weakness Precautions Precautions/Isolations: Fall Prevention, Standard Precautions Referral Physician: Rodney Reason for Referral: Evaluation/Treatment Medical History Pertinent Medical History: DM, HTN Additional Medical History PE, DVT Current History Patient presented to the [place] [facility] with shortness of breath. Diagnosed with acute respiratory failure with suspicion of PE. Transferred to [place] due to lack of bed availability. Pt found to have DVT and PE. Reviewed History: Yes Social History Home: Apartment Current Living Status: Alone PT Steps Inside Home: 0 Prior Prior Level of Function SCALE: Activities may be completed with or without assistive devices. 7-Wzvzplypdf-mrkralm completes the activity by him/herself with no assistance from a helper. 5-Set-up or Clean-up Assistance-helper sets up or cleans up; patient completes activity. [place] assists only prior to or following the activity. 4-Supervision or Touching Assistance-helper provides verbal cues and/or touching/steadying and/or contact guard assistance as patient completes activity. Assistance may be provided throughout the activity or intermittently. 3-Partial/Moderate Assistance-helper does LESS THAN HALF the effort. [place] lifts, holds or supports trunk or limbs, but provides less than half the effort. 2-Substantial/Maximal Assistance-helper does MORE THAN HALF the effort. [place] lifts or holds trunk or limbs and provides more than half the effort. 0-Istjwnukj-tgvrra does ALL the effort. Patient does none of the effort to comp lete the activity. Or, the assistance of 2 or more helpers is required for the patient to complete the activity. If activity was not attempted, code reason: 7-Patient Refused. 9-Not Applicable-not attempted and the patient did not perform the activity before the current illness, exacerbation or injury. 10-Not Attempted due to Environmental Limitations-(lack of equipment, weather restraints, etc.). 88-Not Attempted due to Medical Conditions or Safety Concerns. Bed Mobility: 6 Transfers (B,C,W/C): 6 Gait: 6 Stairs: 6 Prior Devices Use: None PT Evaluation-Current Subjective Pt reports her breathing is improving. She has no c/o pain. Objective Patient Orientation: Normal For Age ROM/Strength ROM Lower Extremities WFL Strength Lower Extremities Gross 4+/5 throughout Sensory Vision: Wears Glasses Hearing: Functional Transfers Roll Left to Right (QC): 6 Sit to Lying (QC): 6 Lying to Sitting/Side of Bed(Q: 6 Sit to Stand (QC): 6 Chair/Vhw-ln-Kfcha Xfer(QC): 5 Toilet Transfer (QC): 5 Gait Does the Patient Walk?: Yes Mode of Locomotion: Walk Anticipated Mode of Locomotion: Walk Walk 150 ft (QC): 5 Distance: 250ft Gait Assistive Device: FWW Comments/Gait Description Pt does not use an assistive device normally. Practiced gait with FWW and without. Pt feels she is more comfortable with it at this time. Walked 250ft with cues for breathing and pace. Used FWW and CGA for safety. Balance Sitting Static: Normal Sitting Dynamic: Normal Standing Static: Fair Standing Dynamic: Fair Assessment/Needs Pt needs cues of pacing to avoid shortness of breath. She has lateral ataxia when walking without assistive device. Pt will benefit from PT to restore functional gait prior to d/c to home. Rehab Potential: Good PT Drum Plater Goals Mcfp Goals PT Drum Plater Goals Time Frame: Nov 17, 2020 Roll Left & Right (QC): 6 Sit to Lying (QC): 6 Lying-Sitting on Side/Bed(QC): 6 Sit to Stand (QC): 6 Chair/Mhv-it-Kqrod Xfer(QC): 6 Toilet Transfer (QC): 6 Does the Patient Walk: Yes Walk 150 ft (QC): 6 PT Plan Problem List Problem List: Activity Tolerance, Gait Treatment/Plan Treatment Plan: Continue Plan of Care Treatment Plan: Gait Treatment Duration: Nov 17, 2020 Frequency: 6 times per week Estimated Hrs Per Day: .25 hour per day Patient and/or Family Agrees t: Yes Safety Risks/Education Patient Education: Gait Training Time/GCodes Time In: 1315 Time Out: 1340 Total Billed Treatment Time: 35 Total Billed Treatment visit, vishalal moderate complexity 25 min RIVKA SANCHEZ PT Nov 13, 2020 13:37
--- NOTE | 2020-11-13 15:09 | Occupational Therapy Eval ---
OT Evaluation-General/PLF Medical Diagnosis Admission Date Nov 09, 2020 at 19:30 Medical Diagnosis: Acute Respiratory Failure; pulmonary embolism Onset Date: Nov 09, 2020 Therapy Diagnosis Therapy Diagnosis: Decreased ADL skills Precautions Precautions/Isolations: Fall Prevention, Standard Precautions Weight Bear Status Weight Bearing Restriction: Weight Bearing/Tolerated Referral Physician: Rodney Referral Reason: Activity Tolerance, Self Care, Evaluation/Treatment, Strengthening/ROM Medical History Pertinent Medical History: DM, HTN Additional Medical History DVT, Hyperlipidemia Current History Pt. became SOA at [facility] office. Pt. had to have ambulance called. Reviewed History: Yes Social History Home: Apartment Current Living Status: Alone Steps Inside Home: 0 ADL-Prior Level of Function SCALE: Activities may be completed with or without assistive devices. 4-Fcgykhpeik-eyxsubs completes the activity by him/herself with no assistance from a helper. 5-Set-up or Clean-up Assistance-helper sets up or cleans up; patient completes activity. [place] assists only prior to or following the activity. 4-Supervision or Touching Assistance-helper provides verbal cues and/or touching/steadying and/or contact guard assistance as patient completes activity. Assistance may be provided throughout the activity or intermittently. 3-Partial/Moderate Assistance-helper does LESS THAN HALF the effort. [place] lifts, holds or supports trunk or limbs, but provides less than half the effort. 2-Substantial/Maximal Assistance-helper does MORE THAN HALF the effort. [place] lifts or holds trunk or limbs and provides more than half the effort. 9-Ajbsxmnvc-dmrduf does ALL the effort. Patient does none of the effort to complete the activity. Or, the assistance of 2 or more helpers is required for the patient to complete the activity. If activity was not attempted, code reason: 7-Patient Refused. 9-Not Applicable-not attempted and the patient did not perform the activity before the current illness, exacerbation or injury. 10-Not Attempted due to Environmental Limitations-(lack of equipment, weather restraints, etc.). 88-Not Attempted due to Medical Conditions or Safety Concerns. ADL PLOF Comments Pt. states that she was independent with daily tasks. She does not use a walker or have a walker. She drives. She does her own cooking and cleaning. Self Care: Independent Functional Cognition: Independent DME/Equipment: Bath Chair, Shower Drive Self: Yes OT Current Status Subjective No pain reported. Pt. states that she is very fatigued. Mental Status/Objective Patient Orientation: Person, Place, Time, Situation Current Upper Extremity ROM WFL Upper Extremity Strength Pt. demonstrates 3+/5 overall UE strength. ADL-Treatment Eating (QC): 6 On/Off Footwear (QC): 4 Other Treatments Pt. transfers supine-sit with SBA. Stands from bed with SBA and transfers to chair in room. No LOB noted. All needs met. Pt. able to brush hair. Able to don slipper socks with SBA. Education OT Patient Education: Correct positioning, Modified ADL techniques, Progress toward Goal/Update tx plan, Purpose of tx/functional activities, Reviewed precautions, Rehab process, Transfer techniques Teaching Recipient: Patient Teaching Methods: Demonstration, Discussion OT Short Term Goals Short Term Goals Time Frame: Nov 20, 2020 Eatin Oral hygiene: 5 Toileting hygiene: 4 Shower/bathe self: 4 Upper body dressin Lower body dressin Putting on/taking off footwear: 4 OT J2Ee Architect Goals J2Ee Architect Goals Time Frame: Nov 27, 2020 Eating (QC): 6 Oral Hygiene (QC): 6 Toileting Hygiene (QC): 6 Shower/Bathe Self (QC): 4 Upper Body Dressing (QC): 6 Lower Body Dressing (QC): 6 On/Off Footwear (QC): 6 Additional Goals: 1-Demonstrate ADL Tasks, 2-Verbalize Understanding, 3- ImproveStrength/Carmella 1=Demonstrate adherence to instructed precautions during ADL tasks. 2=Patient will verbalize/demonstrate understanding of assistive devices/modifications for ADL. 3=Patient will improve strength/tolerance for activity to enable patient to perform ADL's. OT Education/Plan Problem List/Assessment Assessment: Decreased Activ Tolerance, Impaired I ADL's, Impaired Self-Care Skills Discharge Recommendations Plan/Recommendations: Continue POC Therapy Discharge Recommendati: Post Acute OT Treatment Plan/Plan of Care Treatment,Training & Education: Yes Patient would benefit from OT for education, treatment and training to promote independence in ADL's, mobility, safety and/or upper extremity function for ADL's. Plan of Care: ADL Retraining, Functional Mobility, UE Funct Exercise/Act Treatment Duration: Nov 27, 2020 Frequency: 5 times per week Estimated Hrs Per Day: .25 hour per day Agreement: Yes Rehab Potential: Good Time/GCodes Start Time: 11:15 Stop Time: 11:30 Total Time Billed (hr/min): 15 Billed Treatment Time 1, VELASQUEZ EDEN OT Nov 13, 2020 15:09
[2020-11-13 16:00] VITALS: BP 132/74
[2020-11-13 20:00] VITALS: BP 132/71
[2020-11-13] MEDS: SIMvastatin 20 MG (ZOCOR) TAB PO SCH (20:12)
[2020-11-14 00:26] VITALS: BP 129/69
[2020-11-14 04:34] VITALS: BP 144/83
[2020-11-14 05:24] LABS: BASOPHILS % (AUTO) 1 % (0-10); EOSINOPHILS # (AUTO) 0.4 10^3/uL (0.0-0.3); EOSINOPHILS % (AUTO) 4 % (0-10); HEMATOCRIT 35 % (35-52); LYMPHOCYTES # (AUTO) 1.6 10^3/uL (1.0-4.0); LYMPHOCYTES % (AUTO) 18 % (12-44); MEAN CORPUSCULAR HEMOGLOBIN 29 pg (25-34); MEAN CORPUSCULAR HGB CONC 31 g/dL (32-36); MEAN CORPUSCULAR VOLUME 93 fL (80-99); MEAN PLATELET VOLUME 8.9 fL (9.0-12.2); MONOCYTES # (AUTO) 0.5 10^3/uL (0.0-1.0); MONOCYTES % (AUTO) 6 % (0-12); NEUTROPHILS # (AUTO) 6.1 10^3/uL (1.8-7.8); NEUTROPHILS % (AUTO) 71 % (42-75); PLATELET COUNT 343 10^3/uL (130-400); WHITE BLOOD COUNT 8.7 10^3/uL (4.3-11.0)
[2020-11-14 05:34] LABS: ALBUMIN 3.7 GM/DL (3.2-4.5); CHLORIDE 103 MMOL/L (98-107); POTASSIUM 4.9 MMOL/L (3.6-5.0); SODIUM 137 MMOL/L (135-145)
[2020-11-14 05:36] LABS: CALCIUM 9.1 MG/DL (8.5-10.1)
[2020-11-14 05:37] LABS: GLUCOSE 154 MG/DL (70-105); TOTAL PROTEIN 6.4 GM/DL (6.4-8.2)
[2020-11-14 05:38] LABS: CARBON DIOXIDE 23 MMOL/L (21-32)
[2020-11-14 05:39] LABS: BILIRUBIN,TOTAL 0.5 MG/DL (0.1-1.0)
[2020-11-14 05:40] LABS: ALKALINE PHOSPHATASE 57 U/L (40-136); CREATININE SERUM 0.83 MG/DL (0.60-1.30); GFR ESTIMATED > 60
[2020-11-14 05:42] LABS: BUN/CREATININE RATIO 23
[2020-11-14 05:43] LABS: ALANINE AMINOTRANSFERASE 13 U/L (0-55)
[2020-11-14] MEDS: inSUlin ASPART (NovoLOG) 1 UNIT/0.01 ML (CHARGE PER UNIT) SC SCH ×4 (06:26→11:42)
[2020-11-14] MEDS: CATHETER FLUSH 10 ML SYR IV SCH ×2 (06:40→14:39)
[2020-11-14] MEDS: RIVAROXABAN 15 MG TABLET (XARELTO) PO SCH (06:41)
[2020-11-14] MEDS: VENlafaxine XR 75 MG (EFFEXOR XR) CAP PO SCH (06:41)
[2020-11-14] MEDS: RT-ALBUTEROL INHALER HFA (VENTOLIN HFA) 18 GM IH PRN (06:59)
[2020-11-14 07:24] VITALS: BP 140/78
[2020-11-14] MEDS: amLODIPine 5 MG (NORVASC) TAB PO SCH (08:27)
[2020-11-14] MEDS: OLANZapine 2.5 MG (ZyPREXA) TAB PO SCH (08:27)
[2020-11-14] MEDS: lisINopril 10 MG (PRINIVIL) TABLET PO SCH (08:27)
--- NOTE | 2020-11-14 09:14 | Physical Therapy Daily Note ---
PT Daily Note-Current Subjective Patient in bed pre tx, agrees to PT, has no complaints of pain. Appearance Patient in bed post tx with nurse call, phone, tray, all needs met. Mental Status Patient Orientation: Person, Place, Situation Attachments: Oxygen Transfers SCALE: Activities may be completed with or without assistive devices. 1-Gfvphuvscr-wopryii completes the activity by him/herself with no assistance from a helper. 5-Set-up or Clean-up Assistance-helper sets up or cleans up; patient completes activity. [place] assists only prior to or following the activity. 4-Supervision or Touching Assistance-helper provides verbal cues and/or touching/steadying and/or contact guard assistance as patient completes activity. Assistance may be provided throughout the activity or intermittently. 3-Partial/Moderate Assistance-helper does LESS THAN HALF the effort. [place] lifts, holds or supports trunk or limbs, but provides less than half the effort. 2-Substantial/Maximal Assistance-helper does MORE THAN HALF the effort. [place] lifts or holds trunk or limbs and provides more than half the effort. 1-Cabntznwk-pxhqyp does ALL the effort. Patient does none of the effort to complete the activity. Or, the assistance of 2 or more helpers is required for the patient to complete the activity. If activity was not attempted, code reason: 7-Patient Refused. 9-Not Applicable-not attempted and the patient did not perform the activity before the current illness, exacerbation or injury. 10-Not Attempted due to Environmental Limitations-(lack of equipment, weather restraints, etc.). 88-Not Attempted due to Medical Conditions or Safety Concerns. Roll Left & Right (QC): 6 Sit to Lying (QC): 6 Lying to Sitting/Side of Bed(Q: 6 Sit to Stand (QC): 6 Chair/Umk-ux-Wsfbk Xfer(QC): 4 Gait Training Distance: 300' Walk 10 feet (QC): 4 Walk 50 ft with 2 Turns(QC): 4 Walk 150 ft (QC): 4 Gait Persons Needed: 1 Gait Assistive Device: None SBA, slow but steady ambulation, tends to lean a little excessively with weight shifting Exercises Supine Ex: Ankle pumps, Quad Set, Heel Slides Supine Reps: 20 Treatments bed mobility and transfers, ambulation, LE strengthening Assessment Current Status: Fair Progress slightly SOB after ambulation but recovered quickly with purse lip breathing PT Half-Way Goals Half-Way Goals PT Half-Way Goals Time Frame: Nov 17, 2020 Roll Left & Right (QC): 6 Sit to Lying (QC): 6 Lying-Sitting on Side/Bed(QC): 6 Sit to Stand (QC): 6 Chair/Pfx-xe-Cmmoc Xfer(QC): 6 Toilet Transfer (QC): 6 Does the Patient Walk: Yes Walk 150 ft (QC): 6 PT Plan Problem List Problem List: Activity Tolerance, Functional Strength, Safety, Balance, Gait, Transfer Treatment/Plan Treatment Plan: Continue Plan of Care Treatment Plan: Gait Treatment Duration: Nov 17, 2020 Frequency: 6 times per week Estimated Hrs Per Day: .25 hour per day Patient and/or Family Agrees t: Yes Safety Risks/Education Patient Education: Gait Training, Transfer Techniques, Correct Positioning, Safety Issues Teaching Recipient: Patient Teaching Methods: Demonstration, Discussion Response to Teaching: Reinforcement Needed Time/GCodes Time In: 0858 Time Out: 0910 Total Billed Treatment 1 visit GT 12' LE HUSAIN PT Nov 14, 2020 09:14
[2020-11-14] MEDS ORDERED: RIVA15TA2 PO (11:14)
[2020-11-14] MEDS ORDERED: RIVA20TA2 PO (11:14)
--- NOTE | 2020-11-14 11:14 | Discharge Summary ---
Discharge Summary Hospital Course Was the Problem List Reviewed?: Yes Problems/Dx: (1) Acute respiratory failure Status: Acute Qualifiers: Qualified Codes: J96.01 - Acute respiratory failure with hypoxia (2) Pulmonary embolism Status: Acute (3) DVT (deep venous thrombosis) Qualifiers: (4) HTN (hypertension) Status: Chronic (5) HLD (hyperlipidemia) Status: Chronic (6) T2DM (type 2 diabetes mellitus) Status: Chronic Qualifiers: (7) Morbid obesity Status: Chronic (8) History of venous thromboembolism Status: Chronic Hospital Course Date of Admission: Nov 09, 2020 at 19:30 Admission Diagnosis : Family Physician/Provider: No,Local Physician Date of Discharge: 11/14/20 Discharge Diagnosis: Acute hypoxic respiratory failure, pulmonary embolism Hospital Course: Hospital course: Pt had an uneventful hospital course after she was admitted from [facility] for SOB found to have pulmonary embolism and left lower extremity DVT. She was placed on Xarelto after acute respiratory failure. She did improve, required 4 liters of oxygen at DC and had no decompensation during the hospital stay and she will have close follow up with her PCP and all medications were sent to [facility] in [place]. Labs and Pending Lab Test: Laboratory Tests 11/13/20 11:36: Glucometer 249H 11/13/20 16:29: Glucometer 248H 11/13/20 20:11: Glucometer 211H 11/14/20 05:10: White Blood Count 8.7, Red Blood Count 3.81, Hemoglobin 11.0L, Hematocrit 35, Mean Corpuscular Volume 93, Mean Corpuscular Hemoglobin 29, Mean Corpuscular Hemoglobin Concent 31L, Red Cell Distribution Width 14.0, Platelet Count 343, Mean Platelet Volume 8.9L, Immature Granulocyte % (Auto) 1, Neutrophils (%) (Auto) 71, Lymphocytes (%) (Auto) 18, Monocytes (%) (Auto) 6, Eosinophils (%) (Auto) 4, Basophils (%) (Auto) 1, Neutrophils # (Auto) 6.1, Lymphocytes # (Auto) 1.6, Monocytes # (Auto) 0.5, Eosinophils # (Auto) 0.4H, Basophils # (Auto) 0.0, Immature Granulocyte # (Auto) 0.0, Sodium Level 137, Potassium Level 4.9, Chloride Level 103, Carbon Dioxide Level 23, Anion Gap 11, Blood Urea Nitrogen 19H, Creatinine 0.83, Estimat Glomerular Filtration Rate > 60, BUN/Creatinine Ratio 23, Glucose Level 154H, Calcium Level 9.1, Corrected Calcium 9.3, Total Bilirubin 0.5, Aspartate Amino Transf (AST/SGOT) 11, Alanine Aminotransferase (ALT/SGPT) 13, Alkaline Phosphatase 57, Total Protein 6.4, Albumin 3.7 11/14/20 11:07: Glucometer 221H Microbiology 11/09/20 MRSA Screen - Final, Complete MRSA not isolated Home Meds Active Xarelto Tablet (Rivaroxaban) 15 Mg Tablet 15 Mg PO BID@0700,1900 Xarelto Tablet (Rivaroxaban) 20 Mg Tablet 20 Mg PO DAILY Reported Vitamin D2 (Ergocalciferol (Vitamin D2)) 50 Mcg Tablet 50 Mcg PO DAILY Glimepiride 4 Mg Tablet 4 Mg PO DAILY Lovastatin 20 Mg Tablet 40 Mg PO DAILY TAKES 2 (20MG) TABLETS Olanzapine 2.5 Mg Tablet 2.5 Mg PO BID Venlafaxine HCl ER (Venlafaxine HCl) 150 Mg Cap.er.24h 300 Mg PO DAILY TAKES 2 (150MG) TABLETS Amlodipine Besylate 5 Mg Tablet 5 Mg PO DAILY Tylenol Extra Strength (Acetaminophen) 500 Mg Tablet 500 Mg PO Q4H PRN Lisinopril 20 Mg Tablet 10 Mg PO DAILY TAKES OF A (20MG) TABLET Loratadine 10 Mg Tablet 10 Mg PO DAILY Multiple Vitamin (Multivitamin with Minerals) 1 Each Tablet 1 Each PO DAILY Metformin HCl 1,000 Mg Tablet 1,000 Mg PO BID NovoLIN N Flexpen (Insulin NPH Human Isophane) 100 Unit/1 Ml Insuln.pen 15 Unit SQ HS Calcium (Calcium Carbonate) 500 Mg Tablet 500 Mg PO DAILY Aspirin EC (Aspirin) 81 Mg Tablet.dr 162 Mg PO DAILY TAKES 2 (81MG) TABLETS NovoLIN N Flexpen (Insulin NPH Human Isophane) 100 Unit/1 Ml Insuln.pen 25 Unit SQ DAILY Assessment/Pt Instructions PCP in 1 week Discharge Planning: <30 minutes discharge planning Discharge Instructions Discharge Diet: No Restrictions Discharge Physical Examination Vital Signs Vital Signs Date Time Temp Pulse Resp B/P (MAP) Pulse Ox O2 Delivery O2 Flow Rate FiO2 11/14/20 09:19 95 Nasal Cannula 4.00 11/14/20 07:24 36.7 82 18 140/78 (98) 11/13/20 06:49 40 General Appearance: No Apparent Distress, WD/WN Respiratory: Lungs Clear, Decreased Breath Sounds Allergies: Coded Allergies: No Allergy Information Available (Unverified , 11/09/20) Discharge Summary Date of Admission Nov 09, 2020 at 19:30 Date of Discharge Discharge Date: Nov 14, 2020 Admission Diagnosis Acute respiratory failure with hypoxia Discharge Diagnosis Assessment: Acute respiratory failure with hypoxia Pulmonary embolism Left lower extremity DVT History of DVT in the past Obesity Hypertension Hyperlipidemia Diabetes [id number] Plan: Xarelto Increase insulin Monitor closely 11/13/2020: PT and OT O2 eval Discharge planning (1) Acute respiratory failure Status: Acute Qualifiers: Qualified Codes: J96.01 - Acute respiratory failure with hypoxia (2) Pulmonary embolism Status: Acute (3) DVT (deep venous thrombosis) Qualifiers: (4) HTN (hypertension) Status: Chronic (5) HLD (hyperlipidemia) Status: Chronic (6) T2DM (type 2 diabetes mellitus) Status: Chronic Qualifiers: (7) Morbid obesity Status: Chronic (8) History of venous thromboembolism Status: Chronic VIDYA MAHAJAN DO Nov 14, 2020 11:14
[2020-11-14] MEDS ORDERED: BISACODYL 10 MG SUPP (DULCOLAX) PR ONE (11:15)
[2020-11-14 11:53] VITALS: BP 140/78
[2020-12-02] MEDS ORDERED: RIVAROXABAN 20 MG TABLET (XARELTO) PO SCH (09:00)
== END 2020-11-14 14:57 | disposition home or self-care (01) | DRG 175 ==
LOC: ICU 19:30 → 4TH 11-11 16:01
PROVIDERS: ADMIT Family Medicine; ATTEND Internal Medicine
DX: I26.99 Other pulmonary embolism without acute cor pulmonale (principal); J96.01 Acute respiratory failure with hypoxia; I82.442 Acute embolism and thrombosis of left tibial vein; Z68.42 Body mass index [BMI] 45.0-49.9, adult; E66.01 Morbid (severe) obesity due to excess calories; E11.65 Type 2 diabetes mellitus with hyperglycemia; I10 Essential (primary) hypertension; K59.00 Constipation, unspecified; Z20.822 Contact with and (suspected) exposure to COVID-19; E78.5 Hyperlipidemia, unspecified; Z79.4 Long term (current) use of insulin; Z86.711 Personal history of pulmonary embolism; Z79.01 Long term (current) use of anticoagulants; Z86.718 Personal history of other venous thrombosis and embolism
CPT/HCPCS: 36415; 71045; 80048; 80053; 82805; 82947; 83735; 83880; 84100; 84145; 84484; 85025; 85027; 85379; 87081; 87636; 93306; 93970; 94640; 94664; 94760; 94761